=== PATIENT | female | born 1995 | race Caucasian/White ===

== ENCOUNTER 2024-04-07 07:15 | Day surgery (SDC) | payer OTHER, SELFPAY ==
[2024-04-07 07:28] VITALS: BMI 24.4
[2024-04-07] MEDS: Lactated Ringers 1,000 ML 80 ML IVCONT (07:31)
[2024-04-07 07:37] LABS: UPreg QC Valid YES; Urine Pregnancy NEGATIVE (NEGATIVE)
[2024-04-07 07:40] VITALS: BP 143/100; PULSE 88; RESP 18; TEMP 36.6; O2SAT 100
--- NOTE | 2024-04-07 07:43 | PC.NURSE ---
Patient urine hcg is negative. just finishing my menstrual cycle.
--- NOTE | 2024-04-07 07:44 | HO.ANESPROP2 ---
HPI - Anesthesia Eval Consult details Narrative: 28 yo female patient for Colonoscopy PMFSH Active Problems Active Problems: Smoker. Last cigarette 2 days ago Diastolic hypertension this morning Past Medical History Medical History (Updated 04/07/24 @ 07:08 by Elisa Miramontes RN) History of deviated nasal septum Family History Family history of problems with anesthesia: No Surgical History Surgical History (Updated 04/07/24 @ 07:07 by Elisa Miramontes RN) Hx of colonoscopy History of Problems with Anesthesia: No Social History Social History Patient Tobacco Use Status: Current everyday Tobacco user Tobacco use type: Cigarette Smoked in Last 30 Days: Yes Patient Interested in Nicotine Replacement: No Are you DNR?: No Advance Directives: No Advance Directives Information Provided: Yes Nutrition Risks: No Nutritional Risk Meds Allergies Allergy/AdvReac Type Severity Reaction Status Date / Time No Known Allergies Allergy Verified 04/07/24 07:09 Active Medications: Current Medications Lactated Ringer's (Lr) 1,000 mls @ 80 mls/hr IVCONT .[id number] CIERA Last Admin: 04/07/24 07:31 Dose: 80 mls/hr Home Medications ?Medication ?Instructions ?Recorded ?Confirmed ?Last Taken ?Type Imodium 04/06/24 04/06/24 Unknown History Exam Height,Weight and Vital Signs: Height 5 ft 7 in Weight 70.76 kg Last Vital Signs Temp 97.9 F 04/07/24 07:40 Pulse 88 04/07/24 07:40 Resp 18 04/07/24 07:40 BP 143/100 H 04/07/24 07:40 Pulse Ox 100 04/07/24 07:40 O2 Del Method Room Air 04/07/24 07:40 Pertinent Lab Results Pertinent Lab Results: Laboratory Tests 04/07/24 07:20 Urine Test NEGATIVE Airway Mallampati Class: II TM Dist: >3cm Neck ROM: Full Loose/Missing/Broken Teeth: No (Denies broken, loose, missing teeth) Heart: RRR Lungs: CTAB Assessment and Plan Assessment Anesthesia Assessment: Anesthesia Plan Discussed and Chart Reviewed Final Anesthetic Review Family History of Problems with Anesthesia: No History of Problems with Anesthesia: No NPO: Yes ASA Class: II Final Preanesthetic Review: No Changes in Pt Med Stat, Meds/Allgs Chart Reviewed, Consent Obtained/Reviewed and Anes Risks/Benef Reviewed Patient Risk: Intermediate Procedure Risk: Low Assessment/Block/Sedation in SS: Assess/Block/Sedation-SS Anesthetic Plan Anesthetic Plan: GA and TIVA Disposition: Standard PACU
[2024-04-07 08:06] VITALS: BP 132/102
--- NOTE | 2024-04-07 08:13 | MHC.SHP ---
Pre-Procedural Eval Section A - 24 Hr Update-Section A only Date of Service: 04/07/24 Section B - Complete if H&P > 30 days Chief Complaint: Generalized abdominal pain Details of Present Illness: see H&P no changes Relevant Family History (Specify if Yes): No Relevant Social History: None Present Medications: see Short Stay Collaborative assessment Medical History: No relevant PMH Allergies: Allergies Allergy/AdvReac Type Severity Reaction Status Date / Time No Known Allergies Allergy Verified 04/07/24 07:09 Review of Systems Sugical H&P ROS: Negative: Constitution, Cardiovascular, Respiratory, Neurological, Psychiatric, Hem-Onc, Allergic/Immunologic, Gastrointestinal, Genitourinary, Musculoskeletal, Integumentary, Endocrine and Eyes/Ears/Nose/Throat Exam Surgical H&P Exam: Normal: HEENT, Normal: Heart, Normal: Lungs, Normal: Extremities, Normal: Abdomen, Normal: Skin and Normal: Neurological Plan Diagnosis/Plan: Unchanged I have reviewed the history and physical and performed a pertinent physical examination on my patient. No changes have occurred unless specified. Time Spent With Patient Time: Total time managing care of this patient today ____ minutes.
[2024-04-07 08:42] VITALS: BP 107/76; PULSE 78; RESP 16; TEMP 36.8; O2SAT 99
--- NOTE | 2024-04-07 08:55 | OP_ITS ---
DATE OF SERVICE: 04/07/2024 SURGEON: Dane Gifford MD INDICATIONS: Abdominal pain and change in bowel habits. PREOPERATIVE DIAGNOSIS: POSTOPERATIVE DIAGNOSIS: PROCEDURE PERFORMED: Colonoscopy to the terminal ileum with biopsy. ESTIMATED BLOOD LOSS: COMPLICATIONS: ANESTHESIA: Monitored anesthesia care. ASSISTANTS: SPECIMENS: DESCRIPTION OF PROCEDURE: History and physical performed. The risks and benefits of the procedure were explained to the patient. Informed consent was obtained. The patient was placed in the left lateral decubitus position. A digital rectal exam was performed, was found to be normal. The Olympus pediatric video colonoscope was introduced into the rectum and advanced to the cecum. The cecum was identified by transillumination, palpation, and identification of ileocecal valve. Examination was performed. The scope was removed. She tolerated the procedure well and was returned to recovery area in stable condition. FINDINGS: The terminal ileum was examined for approximately 15 cm, appeared normal. Biopsies were obtained. The visualized colonic mucosa was within normal limits. The quality of the prep was good. No signs of colitis were identified. Biopsies were obtained from the right colon and sigmoid colon. Retroflexed examination showed some hypertrophic anal papillae and very small internal hemorrhoids. IMPRESSION: Normal colonoscopy. RECOMMENDATIONS: 1. Follow up the biopsy results. 2. Screening colonoscopy is recommended beginning at age 45 for average-risk individuals. MD ED Mahajan/BRUNILDA / [id number]
== END 2024-04-07 09:11 | disposition home or self-care (01) ==
PROVIDERS: Anesthesiology; PCP Nurse Practitioner Adult Health; Visit Provider Internal Medicine Gastroenterology
PROC: 0DJD8ZZ Inspection of Lower Intestinal Tract, Via Natural or Artificial Opening Endoscopic (ICD-10-PCS; CPT 45378; principal; 2024-04-07 08:20)
DX: R10.84 Generalized abdominal pain (principal); R19.4 Change in bowel habit; R19.7 Diarrhea, unspecified; R15.2 Fecal urgency; K62.89 Other specified diseases of anus and rectum; K64.8 Other hemorrhoids; N83.209 Unspecified ovarian cyst, unspecified side; K76.0 Fatty (change of) liver, not elsewhere classified; R51.9 Headache, unspecified; F41.9 Anxiety disorder, unspecified; Z98.890 Other specified postprocedural states; F17.210 Nicotine dependence, cigarettes, uncomplicated; Z79.899 Other long term (current) drug therapy
CPT/HCPCS: 45380; 81025; 88305; J2704